=== PATIENT | female | born 1955 | race Caucasian/White ===

== ENCOUNTER → 2017-02-06 | Outpatient (CLI) | payer BC ==
--- NOTE | 2017-02-15 13:58 | MM ---
Reason for exam: clinical finding. Last mammogram was performed 12 years and 2 months ago. History: Patient had first child after 31. Family history of breast cancer in mother and breast cancer in relative. Excisional biopsy of the left breast. Physical Findings: Nurse did not find any significant physical abnormalities on exam. MG 3D Diag Mammo W/Cad CHARAN Bilateral CC and MLO view(s) were taken. Prior study comparison: May 18, 2012, mammogram, performed at [facility]. December 31, 2010, mammogram, performed at [facility]. December 03, 2004, bilateral screening mammogram. December 14, 1999, left breast special view mammogram. The breast tissue is heterogeneously dense. This may lower the sensitivity of mammography. There is no discrete abnormality. These results were verbally communicated with the patient and result sheet given to the patient on 02/06/17. ASSESSMENT: Negative, BI-RAD 1 RECOMMENDATION: Routine screening mammogram of both breasts in 1 year.
== END | disposition home or self-care (01) ==
LOC: RADMAMWWP 07:41
PROVIDERS: ATTEND Family Medicine
DX: R92.8 Other abnormal and inconclusive findings on diagnostic imaging of breast (principal)
CPT/HCPCS: G0204; G0279

== ENCOUNTER → 2018-07-24 | Outpatient (CLI) | payer BC ==
[2018-07-24 07:19] LABS: HCT 44.4 % (34.0-46.0); HGB 14.1 gm/dL (11.4-16.0); MCH 29.4 pg (25.0-35.0); MCHC 31.7 g/dL (31.0-37.0); MCV 92.8 fL (80.0-100.0); Mean Platelet Volume 7.1; Platelet Count 238 k/uL (150-450); RBC 4.79 m/uL (3.80-5.40); RDW 12.9 % (11.5-15.5); WBC 4.7 k/uL (3.8-10.6)
[2018-07-24 07:40] LABS: Appearance,Urine Clear (Clear); Bilirubin,Urine Negative (Negative); Blood,Urine Negative (Negative); Color,Urine Light Yellow; Glucose,Urine (UA) Negative (Negative); Ketones,Urine Negative (Negative); Leukocyte Esterase,Urine Small (Negative); Nitrite,Urine Negative (Negative); PH, Urine 6.5 (5.0-8.0); Protein,Urine Negative (Negative); RBC,Urine <1 /hpf (0-5); Specific Gravity,Urine 1.008 (1.001-1.035); Squamous Epithelial Cell,Urine <1 /hpf (0-4); Urobilinogen,Urine <2.0 mg/dL (<2.0); WBC,Urine 2 /hpf (0-5)
[2018-07-24 15:59] LABS: Albumin 4.5 g/dL (3.80-4.90); Albumin/Globulin Ratio 2.14 (1.20-2.10); Anion Gap 9.8 mmol/L (4.00-12.00); Calcium 9.6 mg/dL (8.7-10.3); Carbon Dioxide 27.2 mmol/L (21.6-31.8); Globulin 2.1 g/dL (2.1-3.7); LDL Cholesterol,Calculated 140.2 mg/dL (0.0-131.0); Potassium 4.5 mmol/L (3.5-5.5); Total Bilirubin 0.4 mg/dL (0.3-1.2); Total Protein 6.6 g/dL (6.2-8.2); VLDL Calculation 15.8 mg/dL (5.00-40.00)
[2018-07-24 16:06] LABS: T4, Free (Free Thyroxine) 1.3 ng/dL (0.80-1.80)
[2018-07-24 16:37] LABS: Hemoglobin A1C 5.7 % (4.0-6.0)
== END | disposition home or self-care (01) ==
LOC: LABWHC1 06:48
PROVIDERS: ATTEND Nurse Practitioner Acute Care
DX: Z00.00 Encounter for general adult medical examination without abnormal findings (principal); E03.9 Hypothyroidism, unspecified
CPT/HCPCS: 36415; 80053; 80061; 81001; 82306; 83036; 84439; 84443; 85027

== ENCOUNTER → 2018-08-17 | Outpatient (CLI) | payer BC ==
--- NOTE | 2018-08-17 16:09 | MR ---
EXAMINATION TYPE: MR iac wo/w con DATE OF EXAM: 08/17/2018 COMPARISON: None HISTORY: Right hearing loss, tinnitus CONTRAST: Performed utilizing 9.5 mL intravenous Gadavist gadolinium contrast. TECHNIQUE: Multiplanar, multiecho imaging on a 3.0 Renetta magnet is performed through the brain. Atte ntion is paid to the internal auditory canals with thin section imaging. Postcontrast imaging is per formed through the internal auditory canals. FINDINGS:Craniovertebral junction is normal. The pituitary is normal. Diffusion-weighted imaging is performed. No suspicious hyperintensity is present to suggest an acute intracranial infarct or acute ischemic area. Signal within the brain appears normal. Thin section imaging is performed through the internal auditory canals and cerebellar pontine angles. No cerebellar pontine angle masses are evident. The internal auditory canals appear normal without expansion or erosion. Postcontrast imaging was performed. No suspicious enhancement is evident within the internal audito ry canals or the included portions of the brain. Some mild mucosal thickening is within the inferior maxillary sinuses bilaterally. IMPRESSIONS: 1. Normal internal auditory canals. 2. No acute suspicious changes within the brain.
== END | disposition home or self-care (01) ==
LOC: RADMRIMAIN 11:18
PROVIDERS: ATTEND Otolaryngology
DX: H93.11 Tinnitus, right ear (principal); H91.91 Unspecified hearing loss, right ear
CPT/HCPCS: 70553; A9585

== ENCOUNTER 2018-10-22 08:11 | Observation (INO) | payer BC ==
[2018-10-22 08:57] LABS: Basophils % (A) 1 %; Eosinophils # (A) 0.2 k/uL (0-0.7); Eosinophils % (A) 5 %; HCT 44.1 % (34.0-46.0); HGB 14.6 gm/dL (11.4-16.0); Lymphocytes # (A) 1.2 k/uL (1.0-4.8); Lymphocytes % (A) 25 %; MCH 30.2 pg (25.0-35.0); MCHC 33.2 g/dL (31.0-37.0); Mean Platelet Volume 6.7; Monocytes # (A) 0.4 k/uL (0-1.0); Monocytes % (A) 8 %; Neutrophils # (A) 2.8 k/uL (1.3-7.7); Neutrophils % (A) 60 %; Platelet Count 231 k/uL (150-450); RBC 4.84 m/uL (3.80-5.40); RDW 12.7 % (11.5-15.5); WBC 4.6 k/uL (3.8-10.6)
[2018-10-22 09:09] LABS: D-Dimer 0.32 mg/L FEU (<0.60); INR 0.9 (<1.2); Partial Thromboplastin Time 24.4 sec (22.0-30.0); Prothrombin Time 9.5 sec (9.0-12.0)
[2018-10-22 09:10] LABS: ALT 33 U/L (9-52); AST 24 U/L (14-36); Albumin 4.3 g/dL (3.5-5.0); Alkaline Phosphatase 79 U/L (38-126); Anion Gap 6 mmol/L; Blood Urea Nitrogen 16 mg/dL (7-17); Calcium 9.6 mg/dL (8.4-10.2); Carbon Dioxide 30 mmol/L (22-30); Chloride 107 mmol/L (98-107); Glucose 101 mg/dL (74-99); Magnesium 2.2 mg/dL (1.6-2.3); Potassium 4.3 mmol/L (3.5-5.1); Sodium 143 mmol/L (137-145); Total Bilirubin 0.6 mg/dL (0.2-1.3); Total Protein 7.2 g/dL (6.3-8.2)
--- NOTE | 2018-10-22 09:19 | XR ---
EXAMINATION TYPE: XR chest 2V DATE OF EXAM: 10/22/2018 COMPARISON: None INDICATION: Chest heaviness TECHNIQUE: Frontal and lateral views of the chest are obtained. FINDINGS: The heart size is normal. The pulmonary vasculature is normal. The lungs are clear. IMPRESSION: 1. No acute pulmonary process.
--- NOTE | 2018-10-22 09:26 | ED ---
Chest Pain HPI - General Chief Complaint: Chest Pain Stated Complaint: Chest Pain Time Seen by Provider: 10/22/18 08:26 Source: patient Mode of arrival: ambulatory Limitations: no limitations - Related Data Home Medications Medication Instructions Recorded Confirmed Amoxic-Pot Clav 875-125Mg 1 tab PO Q12HR 10/22/18 10/22/18 [Augmentin 875-125] Cetirizine HCl [Zyrtec] 10 mg PO HS 10/22/18 10/22/18 Levothyroxine Sodium [Synthroid] 88 mcg PO DAILY 10/22/18 10/22/18 Allergies Allergy/AdvReac Type Severity Reaction Status Date / Time No Known Allergies Allergy Verified 10/22/18 08:34 Review of Systems ROS Statement: Those systems with pertinent positive or pertinent negative responses have been documented in the HPI. ROS Other: All systems not noted in ROS Statement are negative. EKG Findings - EKG Comments: EKG Findings:: EKG shows sinus rhythm rate of 77, RI 154, QRS 02, QTc 4:30 Past Medical History Past Medical History: Thyroid Disorder History of Any Multi-Drug Resistant Organisms: None Reported Past Surgical History: Cholecystectomy, Tonsillectomy Past Psychological History: No Psychological Hx Reported Smoking Status: Former smoker Past Alcohol Use History: Occasional Past Drug Use History: None Reported General Exam Limitations: no limitations Course Vital Signs 10/22/18 08:19 Temperature 97.8 F Pulse Rate 71 Respiratory 18 Rate Blood Pressure 142/86 O2 Sat by Pulse 99 Oximetry Disposition Clinical Impression: Chest pain Disposition: ADMITTED IP TO THIS [facility] Condition: Undetermined Instructions (If sedation given, give patient instructions): Chest Pain (ED) Is patient prescribed a controlled substance at d/c from ED?: No Referrals: John Salinas DO [Primary Care Provider] - 1-2 days
[2018-10-22 09:35] LABS: Creatine Kinase 75 U/L (30-135)
[2018-10-22 09:47] LABS: Creatine Kinase MB 0.7 ng/mL (0.0-2.4); Troponin I <0.012 ng/mL (0.000-0.034)
[2018-10-22] MEDS ORDERED: NITROGLYCERIN SL TABS 0.4 MG TAB SUBLINGUAL PRN (10:50)
[2018-10-22] MEDS ORDERED: HEPARIN SODIUM,PORCINE 5,000 UNIT/ML 1 ML VIAL IV PRN (10:50)
[2018-10-22] MEDS ORDERED: HEPARIN SODIUM,PORCINE 5,000 UNIT/ML 1 ML VIAL IV ONE (10:50)
[2018-10-22] MEDS: HEPARIN SOD,PORK IN 0.45% NACL 25,000 UNIT in 0.45% NACL 1 250ML.BAG IV SCH (11:12)
[2018-10-22] MEDS ORDERED: MAG HYDROX/AL HYDROX/SIMETH 30 ML CUP PO ONE (15:10)
--- NOTE | 2018-10-22 15:10 | P.CRDCN ---
History of Present Illness History of present illness: This is a pleasant 63-year-old female past medical history significant for hypothyroidism, dyslipidemia and osteoarthritis. She denies history of coronary artery disease or hypertension. Her brother suffered a heart attack in his mid-40s and survived. We have been asked to see her in consultation for chest pain. She states she woke up Monday morning with an heavy pressure sensation in the mid-sternal and left precordial region with radiation through to her back. She states this discomfort was noted to be there when she woke and remained persistent ever since. The heaviness seems to be worse in the morning. Last night she noted some palpitations and fluttering in her chest, she checked her pulse and it was normal. She states she has felt similar type palpitations in the past when her thyroid has been abnormal. She also felt mildly short of breath last night with no specific aggravating factors. Upon arrival to ED at the time of her EKG she describes pain 8/10 in her chest. The pain has slowly improved since admission with a mild ache still present 2/10. She associated the improvement in symptoms when they gave her IV heparin. EKG reveals sinus mechanism with no acute ST or T-wave abnormalities noted. Chest x-ray is negative for an acute cardiopulmonary process. Laboratory data reviewed, WBC 4.6, hemoglobin 14.6, platelets 231, d-dimer 0.32 , sodium 143, potassium 4.3, creatinine 0.81, magnesium 2.2, cardiac enzymes negative 1, and NTproBNP 174. She takes no daily cardiac medications. However, she does take Red Yeast Rice for her cholesterol over the counter. At the time of my exam: CONSTITUTIONAL: Denies fever. Denies chills. EYES: Denies blurred vision. Denies vision changes. Denies eye pain. EARS, NOSE, MOUTH & THROAT: Denies headache. Denies sore throat. Denies ear pain. CARDIOVASCULAR: Complains of chest pain. Denies shortness of breath. Denies orthopnea. Denies PND. Denies palpitations. RESPIRATORY: Denies cough. GASTROINTESTINAL: Denies abdominal pain. Denies diarrhea. Denies constipation. Denies nausea. Denies vomiting. MUSCULOSKELETAL: Denies myalgias. INTEGUMENTARY: Denies pruitis. Denies rash. NEUROLOGIC: Denies numbness. Denies tingling. Denies weakness. PSYCHIATRIC: Denies anxiety. Denies depression. ENDOCRINE: Denies fatigue. Denies weight change. Denies polydipsia. Denies polyurina. GENITOURINARY: Denies burning, hematuria or urgency with micturation. HEMATOLOGIC: Denies history of anemia. Denies bleeding. Blood pressure 148/80 heart rate 75 afebrile maintaining oxygen saturation on room air GENERAL: This is a 63-year-old female in no apparent distress at the time of my examination. HEENT: Head is atraumatic, normocephalic. Pupils are equal, round. Sclerae anicteric. Conjunctivae are clear. Mucous membranes of the mouth are moist. Neck is supple. There is no jugular venous distention. No carotid bruit is heard. LUNGS: Clear to auscultation no wheezes, rales or rhonchi. No chest wall tenderness is noted on palpation or with deep breathing. HEART: Regular rate and rhythm with faint systolic ejection murmur at the base, no rubs or gallops. S1 and S2 heard. ABDOMEN: Soft, nontender. Bowel sounds are heard. No organomegaly noted. EXTREMITIES: No evidence of peripheral edema and no calf tenderness noted. VASCULAR: Radial and dorsalis pedis pulses palpated, no evidence of clubbing. NEUROLOGIC: Patient is awake, alert and oriented x3. ASSESSMENT Precordial chest pain constant 2 days not associated with exertion. Dyslipidemia Hypothyroidism Significant family history for premature coronary artery disease Obestiy, BMI 32.3 PLAN Continue to obtain serial cardiac enzymes to rule out an acute event. Obtain 2-D echocardiogram and Doppler study to assess cardiac structure and function. Check TSH and lipid panel. Give maalox 30 ml x1 now and document if she achieves relief of ongoing chest pain. Nothing by mouth after midnight tonight for possibility of stress testing versus coronary angiography in the morning. Further recommendations to follow based upon clinical course. Thank you kindly for this consultation. Nurse Practitioner note has been reviewed, I agree with a documented findings and plan of care. Patient was seen and examined. Past Medical History Past Medical History: Hearing Disorder / Deafness, Osteoarthritis (OA), Thyroid Disorder Additional Past Medical History / Comment(s): Blood clotting disorder in family but pt tested negative for it, arthritis in multiple joints, LDL 130s-not on RX yet, R ear tinnitis, hypothyroid. History of Any Multi-Drug Resistant Organisms: None Reported Past Surgical History: Adenoidectomy, Cholecystectomy, Tonsillectomy, Tubal Ligation Additional Past Surgical History / Comment(s): Cervical benign polypectomy, L breast lumpectomy x2 (benign), D&C Additional Past Anesthesia/Blood Transfusion Reaction / Comment(s): Pt is slow to wake. Smoking Status: Former smoker - Past Family History Father Additional Family Medical History / Comment(s): Father at the age of 44 yrs after a trip to [facility]-possible intestinal infection. Mother Family Medical History: Cancer Additional Family Medical History / Comment(s): Mother had breasst cancer. She is 81 yrs old. Medications and Allergies Home Medications Medication Instructions Recorded Confirmed Type Amoxic-Pot Clav 875-125Mg 1 tab PO Q12HR 10/22/18 10/22/18 History [Augmentin 875-125] Cetirizine HCl [Zyrtec] 10 mg PO HS 10/22/18 10/22/18 History Levothyroxine Sodium [Synthroid] 88 mcg PO DAILY 10/22/18 10/22/18 History Allergies Allergy/AdvReac Type Severity Reaction Status Date / Time No Known Allergies Allergy Verified 10/22/18 08:34 Physical Exam Vitals: Vital Signs Temp Pulse Pulse Resp BP BP Pulse Ox 10/22/18 12:15 98.2 F 75 18 148/80 98 10/22/18 10:50 72 18 143/70 100 10/22/18 08:19 97.8 F 71 18 142/86 99 Intake and Output 10/21/18 10/22/18 10/22/18 22:59 06:59 14:59 Intake Total 436 Balance 436 Intake: Oral 436 Other: # Voids 1 Weight 90.718 kg Results 10/22/18 08:45 10/22/18 08:45 Cardiac Enzymes 10/22/18 10/22/18 Range/Units 08:45 08:45 AST 24 (14-36) U/L CK-MB (CK-2) 0.7 (0.0-2.4) ng/mL Troponin I <0.012 (0.000-0.034) ng/mL Coagulation 10/22/18 Range/Units 08:45 PT 9.5 (9.0-12.0) sec APTT 24.4 (22.0-30.0) sec CBC 10/22/18 Range/Units 08:45 WBC 4.6 (3.8-10.6) k/uL RBC 4.84 (3.80-5.40) m/uL Hgb 14.6 (11.4-16.0) gm/dL Hct 44.1 (34.0-46.0) % Plt Count 231 (150-450) k/uL Comprehensive Metabolic Panel 10/22/18 Range/Units 08:45 Sodium 143 (137-145) mmol/L Potassium 4.3 (3.5-5.1) mmol/L Chloride 107 (98-107) mmol/L Carbon Dioxide 30 (22-30) mmol/L BUN 16 (7-17) mg/dL Creatinine 0.81 (0.52-1.04) mg/dL Glucose 101 H (74-99) mg/dL Calcium 9.6 (8.4-10.2) mg/dL AST 24 (14-36) U/L ALT 33 (9-52) U/L Alkaline Phosphatase 79 (38-126) U/L Total Protein 7.2 (6.3-8.2) g/dL Albumin 4.3 (3.5-5.0) g/dL Current Medications Generic Name Dose Route Start Last Admin Trade Name Philipq PRN Reason Stop Dose Admin Aspirin 325 mg 10/23/18 09:00 Aspirin PO DAILY DARYL Heparin Sodium (Porcine) 0 unit 10/22/18 10:50 Heparin IV Q6HR PRN Low PTT Protocol Heparin Sodium/Sodium Chloride 250 mls @ 10 mls/hr 10/22/18 11:00 10/22/18 11 :12 25,000 unit/ Sodium Chloride IV 11.024 units/kg/hr .Q24H DARYL 10 mls/hr Administration Protocol 11.024 UNITS/KG/HR Nitroglycerin 0.4 mg 10/22/18 10:50 Nitrostat SUBLINGUAL Q5M PRN Chest Pain Intake and Output 10/21/18 10/22/18 10/22/18 22:59 06:59 14:59 Intake Total 436 Balance 436 Intake: Oral 436 Other: # Voids 1 Weight 90.718 kg Patient Weight 10/23/18 06:59 Weight 90.718 kg 10/22/18 08:45 10/22/18 08:45
[2018-10-22 15:50] LABS: Creatine Kinase 71 U/L (30-135)
[2018-10-22 16:03] LABS: Creatine Kinase MB 0.5 ng/mL (0.0-2.4); Troponin I <0.012 ng/mL (0.000-0.034)
--- NOTE | 2018-10-22 18:32 | ECHOF ---
Referral Reason:cp MEASUREMENTS -------- HEIGHT: 167.6 cm WEIGHT: 90.7 kg BP: 148/80 RVIDd: 2.8 cm (< 3.3) IVSd: 1.1 cm (0.6 - 1.1) LVIDd: 4.0 cm (3.9 - 5.3) LVPWd: 1.0 cm (0.6 - 1.1) IVSs: 1.3 cm LVIDs: 2.6 cm LVPWs: 1.3 cm LAESV Index (A-L): 14.38 ml/m Ao Diam: 3.3 cm (2.0 - 3.7) AV Cusp: 2.1 cm (1.5 - 2.6) LA Diam: 3.2 cm (2.7 - 3.8) EPSS: 0.3 cm MV E Slade: 0.76 m/s MV DecT: 256 ms MV A Slade: 0.71 m/s MV E/A Ratio: 1.07 RAP: 5.00 mmHg RVSP: 26.02 mmHg MV EF SLOPE: 95.17 mm/s (70 - 150) MV EXCURSION: 1.96 cm (> 18.000) FINDINGS -------- Sinus rhythm. This was a technically adequate study. The left ventricular size is normal. Left ventricular wall thickness is normal. Overall left vent ricular systolic function is normal with, an EF between 55 - 60 %. The right ventricle is normal in size and function. Normal LA size by volume 22+/-6 ml/m2. The right atrium is normal in size. The aortic valve is trileaflet, and appears structurally normal. No aortic stenosis or regurgitation. The mitral valve leaflets are mildly thickened. There is trace to mild mitral regurgitation. Trace tricuspid regurgitation present. Right ventricular systolic pressure is normal at < 35 mmHg. There is no evidence of pulmonary hypertension. Trace/mild (physiologic) pulmonic regurgitation. The aortic root size is normal. Normal inferior vena cava with normal inspiratory collapse consistent with estimated right atrial pre ssure of 5 mmHg. There is no pericardial effusion. CONCLUSIONS -------- 1. Sinus rhythm. 2. This was a technically adequate study. 3. The left ventricular size is normal. 4. Left ventricular wall thickness is normal. 5. Overall left ventricular systolic function is normal with, an EF between 55 - 60 %. 6. Normal LA size by volume 22+/-6 ml/m2. 7. The aortic valve is trileaflet, and appears structurally normal. No aortic stenosis or regurgitati on. 8. The mitral valve leaflets are mildly thickened. 9. There is trace to mild mitral regurgitation. 10. Trace tricuspid regurgitation present. 11. Right ventricular systolic pressure is normal at < 35 mmHg. 12. There is no evidence of pulmonary hypertension. 13. Trace/mild (physiologic) pulmonic regurgitation. 14. The aortic root size is normal. 15. There is no pericardial effusion. SOFTWARE DEVELOPER MID LEVEL: Gucci Aquino RDCS
[2018-10-22 18:36] LABS: T4, Free (Free Thyroxine) 1.6 ng/dL (0.78-2.19)
[2018-10-22] MEDS: NITROGLYCERIN-D5W PMX 50 MG in DEXTROSE/WATER 1 250ML.BAG IV SCH (20:45)
[2018-10-22] MEDS ORDERED: METOPROLOL TARTRATE 25 MG TAB PO SCH (21:00)
[2018-10-22 21:16] LABS: Creatine Kinase 68 U/L (30-135)
[2018-10-22 21:27] LABS: Creatine Kinase MB 0.4 ng/mL (0.0-2.4); Troponin I <0.012 ng/mL (0.000-0.034)
--- NOTE | 2018-10-22 22:22 | P.HPIM ---
History of Present Illness H&P Date: 10/22/18 Chief Complaint: Chest pain Patient is 63-year-old female with a known history of hypothyroidism, osteoarthritis and hearing disorder came to ER with complaints of chest pressure since Monday a.m. Patient says that she woke up with heavy pressure- like sensation in the midsternal region and radiating to the back. 8 / 10 in severity when she came to the hospital. Patient has been having constant pain and pressure since then. Patient also has been burping a lot. Patient did take Prilosec at home without much relief. Patient has been feeling fluttering in her chest intermittently. Patient says that she does have history of hypothyroidism and has been taking higher dose of levothyroxine and recently reduce the dose to 88 g from 100 g due to fluttering in the chest. Otherwise patient denied any associated shortness of breath, nausea vomiting or diaphoresis. No headache or dizziness or lightheadedness. No cough or sputum production. No fever no chills. EKG showed normal sinus rhythm with no acute ST-T wave changes Chest x-ray showed no acute cardiopulmonary process D-dimer 0.3 to not elevated Troponin 1 negative nt-proBNP is 174 Patient says that she has a family history of blood clots and she was tested previously but workup came out negative for her. Patient does have a family history of coronary disease in her brother with history of [facility] at age 49. He also had bariatric surgery. TSH 0.2 and free T4 1.6 Review of Systems Constitutional: Patient denies any fever or chills . No generalized weakness or weight loss. Abdomen: Patient denied nausea vomiting and diarrhea and abdominal pain. Cardiovascular: Waldron does have chest pressure. No short of breath no palpitations. Respiratory: patient denied any cough is from production. No shortness of breath Neurologic: Patient denied any numbness or tingling headache. Musculoskeletal: Patient denies any complaints of joint swelling or deformity. Skin: Negative Psychiatric: Negative Endocrine: No heat or cold intolerance. No recent weight gain. Genitourinary: No dysuria or hematuria. All other 14 point ROS negative except the above Past Medical History Past Medical History: Hearing Disorder / Deafness, Osteoarthritis (OA), Thyroid Disorder Additional Past Medical History / Comment(s): Blood clotting disorder in family but pt tested negative for it, arthritis in multiple joints, LDL 130s-not on RX yet, R ear tinnitis, hypothyroid. History of Any Multi-Drug Resistant Organisms: None Reported Past Surgical History: Adenoidectomy, Cholecystectomy, Tonsillectomy, Tubal Ligation Additional Past Surgical History / Comment(s): Cervical benign polypectomy, L breast lumpectomy x2 (benign), D&C Additional Past Anesthesia/Blood Transfusion Reaction / Comment(s): Pt is slow to wake. Smoking Status: Former smoker - Past Family History Father Additional Family Medical History / Comment(s): Father at the age of 44 yrs after a trip to [facility]-possible intestinal infection. Mother Family Medical History: Cancer Additional Family Medical History / Comment(s): Mother had breasst cancer. She is 81 yrs old. Medications and Allergies Home Medications Medication Instructions Recorded Confirmed Type Amoxic-Pot Clav 875-125Mg 1 tab PO Q12HR 10/22/18 10/22/18 History [Augmentin 875-125] Cetirizine HCl [Zyrtec] 10 mg PO HS 10/22/18 10/22/18 History Levothyroxine Sodium [Synthroid] 88 mcg PO DAILY 10/22/18 10/22/18 History Allergies Allergy/AdvReac Type Severity Reaction Status Date / Time No Known Allergies Allergy Verified 10/22/18 08:34 Physical Exam Vitals: Vital Signs Temp Pulse Pulse Resp BP BP Pulse Ox 10/22/18 12:15 98.2 F 75 18 148/80 98 10/22/18 10:50 72 18 143/70 100 10/22/18 08:19 97.8 F 71 18 142/86 99 Intake and Output 10/22/18 10/22/18 10/22/18 06:59 14:59 22:59 Intake Total 436 Balance 436 Intake: Oral 436 Other: # Voids 1 Weight 90.718 kg PHYSICAL EXAMINATION: Patient is lying in the bed comfortably, no acute distress, awake alert and oriented.. HEENT: Normocephalic. Neck is supple. Pupils reactive. Nostrils clear. Oral cavity is moist. Ears reveal no drainage. Neck reveals no JVD, carotid bruits, or thyromegaly. CHEST EXAMINATION: Trachea is central. Symmetrical expansion. Lung dela cruz clear to auscultation and percussion. CARDIAC: Normal S1, S2 with no gallops. No murmurs ABDOMEN: Soft. Bowel sounds normal. No organomegaly. No abdominal bruits. Extremities: reveal no edema. No clubbing or cyanosis Neurologically awake, alert, oriented x3 with well-coordinated movements. No focal deficits noted Skin: No rash or skin lesions. Psychiatric: Coperative. Nonsuicidal Musculoskeletal: No joint swelling or deformity. Normal range of motion. Results CBC & Chem 7: 10/22/18 08:45 10/22/18 08:45 Labs: Abnormal Lab Results - Last 24 Hours (Table) 10/22/18 Range/Units 08:45 Glucose 101 H (74-99) mg/dL Thrombosis Risk Factor Assmnt - DVT/VTE Prophylaxis DVT/VTE Prophylaxis: Pharmacologic Prophylaxis ordered - Choose All That Apply Any of the Below Risk Factors Present?: Yes Each Factor Represents 1 point: Obesity (BMI >25) Other Risk Factors: Yes Each Risk Factor Represents 2 Points: Age 61-74 years Other congenital or acquired thrombophilia - If yes, enter type in comment: No Thrombosis Risk Factor Assessment Total Risk Factor Score: 3 Thrombosis Risk Factor Assessment Level: Moderate Risk Assessment and Plan Assessment: Atypical chest pain. Rule out ACS Hypothyroidism Hyperlipidemia Family history of coronary artery disease with VA in her brother at age 49 Obesity with BMI 32.3 Osteoarthritis Hearing disorder/deafness Family history of blood clotting disorders Previous history of smoking DVT prophylaxis Plan: Patient will be continued on telemetry monitoring. Serial EKG and troponin negative 3. Patient was started on heparin drip. Cardiology was consulted for further evaluation. Lipid panel was ordered. Possible stress test tomorrow. Current with home medications and further recommendations based on the clinical course. Time with Patient: Greater than 30
[2018-10-23] MEDS ORDERED: ACETAMINOPHEN TAB 325 MG TAB PO PRN (03:38)
[2018-10-23] MEDS: LEVOTHYROXINE 88 MCG TAB PO SCH (06:42)
[2018-10-23 07:31] LABS: Mean Platelet Volume 6.8; Platelet Count 220 k/uL (150-450)
[2018-10-23 07:54] LABS: Cholesterol 199 mg/dL (<200); HDL Cholesterol 50 mg/dL (40-60); LDL Cholesterol,Calculated 127 mg/dL (0-99); Triglycerides 112 mg/dL (<150)
[2018-10-23] MEDS ORDERED: SODIUM CHLORIDE 0.9% 1,000 ML in EMPTY BAG 1 BAG IV ONE (08:18)
[2018-10-23] MEDS ORDERED: ALPRAZolam 0.5 MG TAB PO PRN (08:18)
[2018-10-23] MEDS ORDERED: ALPRAZolam 0.25 MG TAB PO PRN (08:18)
[2018-10-23] MEDS ORDERED: ASPIRIN 325 MG TAB PO STA (08:18)
[2018-10-23] MEDS ORDERED: ATORVASTATIN 80 MG TAB PO STA (08:18)
[2018-10-23] MEDS ORDERED: NITROGLYCERIN SL TABS 0.4 MG TAB SUBLINGUAL PRN (08:18)
[2018-10-23] MEDS: ASPIRIN 325 MG TAB PO SCH (09:11)
[2018-10-23] MEDS: HEPARIN SOD,PORK IN 0.45% NACL 25,000 UNIT in 0.45% NACL 1 250ML.BAG IV SCH (12:45)
[2018-10-23] MEDS ORDERED: VERAPAMIL 2.5 MG/ML 2 ML AMP ONE (13:49)
[2018-10-23] MEDS ORDERED: MIDAZOLAM 2 MG/2 ML VIAL IV ONE ×2 (13:53→14:01)
[2018-10-23] MEDS ORDERED: LIDOCAINE 2% INJ 20 MG/ML SQ ONE (13:54)
[2018-10-23] MEDS ORDERED: IV FLUID CONTINUATION 1,000 ML IV ONE (13:54)
[2018-10-23] MEDS ORDERED: METOPROLOL TARTRATE 5 MG/5 ML VIAL IVP ONE ×2 (13:55→13:57)
[2018-10-23] MEDS ORDERED: HEPARIN SODIUM 1,000 UN/ML (10ML VL) IV ONE (13:55)
[2018-10-23] MEDS ORDERED: VERAPAMIL 2.5 MG/ML 4 ML VIAL INTRAARTER ONE (13:58)
[2018-10-23] MEDS ORDERED: IOPAMIDOL-370 150ML BTL INJ ONE (14:06)
--- NOTE | 2018-10-23 14:10 | P.PN ---
Subjective Progress Note Date: 10/23/18 This is a pleasant 63-year-old female with history of hyperlipidemia, hypothyroidism, family history of premature coronary artery disease, who was seen in consultation yesterday, she presented to the hospital with symptoms of chest heaviness which woke her from sleep. She did have some mild associated shortness of breath with this. She states that the discomfort started through the night, and lasted into the next day. Patient was given nitroglycerin here at the hospital and it seemed to relieve the symptoms of chest discomfort. Last night she did have another episode of chest discomfort, she was started on IV nitroglycerin drip and transferred to the sixth floor. Her EKG performed on admission showed a normal sinus rhythm with nonspecific ST-T wave changes. Troponins were negative 3. Patient was advised to undergo cardiac catheterization, the risks and benefits were explained to the patient in detail , and this will be performed today by Dr. Cole. Objective - Vital Signs Vital signs: Vital Signs Temp 98.1 F 10/23/18 12:20 Pulse 74 10/23/18 12:20 Resp 17 10/23/18 12:20 BP 127/68 10/23/18 12:20 Pulse Ox 100 10/23/18 12:20 Intake & Output 10/22/18 10/23/18 10/23/18 18:59 06:59 18:59 Intake Total 676 370.3 0 Balance 676 370.3 0 Weight 90.718 kg 95.6 kg Intake: Intake, IV Titration 130.3 0 Amount Heparin Sod,Pork in 0.45% 120 NaCl 25,000 unit In 0.45 % NaCl 1 250ml.bag @ 11. 024 UNITS/KG/HR 10 mls/hr IV .Q24H DARYL Rx#: [id number] Nitroglycerin-D5w Pmx 50 10.3 0 mg In Dextrose/Water 1 250ml.bag @ 5 MCG/MIN 1.5 mls/hr IV .Q24H DARYL Rx#: [id number] Oral 676 240 Other: Voiding Method Toilet Toilet # Voids 1 3 2 - Exam PHYSICAL EXAMINATION: GENERAL: 63-year-old female in no acute distress at the time of my examination HEENT: Head is atraumatic, normocephalic. Pupils equal, round. Sclera anicteric. Conjunctiva are clear. Mucous membranes of the mouth are moist. Neck is supple. There is no elevated jugular venous pressure.] bruit is heard. HEART EXAMINATION: Heart S1, S2 normal. No murmur or gallop heard. CHEST EXAMINATION: Lungs are clear to auscultation and precussion. No chest wall tenderness is noted on palpation or with deep breathing. ABDOMEN: Soft, nontender. Bowel sounds are heard. No organomegaly noted. EXTREMITIES: 2+ peripheral pulses with no evidence of peripheral edema and no calf tenderness noted. NEUROLOGIC patient is awake, alert and oriented ?-3. . - Labs CBC & Chem 7: 10/23/18 05:52 10/22/18 08:45 Labs: Abnormal Lab Results - Last 24 Hours (Table) 10/22/18 10/22/18 10/23/18 Range/Units 15:02 16:47 05:52 APTT 53.4 H (22.0-30.0) sec LDL Cholesterol, Calc 127 H (0-99) mg/dL TSH 0.217 L (0.465-4.680) mIU/L 10/23/18 Range/Units 05:52 APTT 51.9 H (22.0-30.0) sec LDL Cholesterol, Calc (0-99) mg/dL TSH (0.465-4.680) mIU/L Assessment and Plan Plan: Assessment and plan #1 symptoms of chest pressure and heaviness with mild associated shortness of breath, bone is normal 3, no acute EKG changes. #2 hyperlipidemia #3 hypothyroidism #4 family history of premature coronary artery disease Plan Echocardiogram with Doppler study was performed which revealed a normal left ventricular systolic function. Patient has been advised to undergo cardiac catheterization. The risks and the benefits were explained to the patient in detail and she is willing to proceed. This will be performed today by Dr. Cole. Further recommendations based on these findings and the patient's clinical course. DNP note has been reviewed, I agree with a documented findings and plan of care. Patient was seen and examined.
[2018-10-23] MEDS ORDERED: RX INFO: IV CONTRAST WAS GIVEN 1 EACH MISC MISCELLANE PRN (14:12)
[2018-10-23] MEDS ORDERED: SODIUM CHLORIDE 0.9% 1,000 ML IV SCH (14:15)
[2018-10-23 15:50] VITALS: RESP 16
[2018-10-23] MEDS: NITROGLYCERIN-D5W PMX 50 MG in DEXTROSE/WATER 1 250ML.BAG IV SCH (15:51)
[2018-10-23] MEDS ORDERED: LORATADINE 10 MG TAB PO SCH (21:00)
--- NOTE | 2018-10-23 21:45 | CC ---
CARDIAC CATHETERIZATION REPORT DATE OF SERVICE: 10/23/2018 PERFORMING PHYSICIAN: Nimesh Kelly MD, batch trucker. PROCEDURE PERFORMED: Selective right and left coronary angiogram. INDICATION: This is a pleasant 63-year-old female patient with hypertension and dyslipidemia who presented to the hospital with chest discomfort and continues to have chest discomfort in spite of IV nitroglycerin. Because of that and because of the family history of coronary artery disease, I decided to pursue a heart catheterization. APPROACH: Right radial artery. COMPLICATIONS: None. LEVEL OF SEDATION: Moderate, with sedation length of 17 minutes. PROCEDURE DESCRIPTION: After obtaining informed consent, the patient was brought to the cardiac laboratory animal facility supervisor. The right radial artery was cannulated using micropuncture technique. The micropuncture wire passed easily. Then I placed a 6-Persian sheath in the right radial artery. After that, I gave the patient 2 mg of verapamil IA and 10,000 units of heparin IV. Subsequently I did selective right and left coronary angiogram using JR4 and JL3.5 catheters. The procedure was completed without any complication. SELECTIVE CORONARY ANGIOGRAM: 1. The right coronary artery is a large-caliber vessel and it is a dominant vessel. It is angiographically normal. It distally bifurcates into PDA and PLV branches; both are angiographically normal. 2. The left main is angiographically normal. It bifurcates into the left circumflex and left anterior descending artery. 3. The left circumflex is a large-caliber vessel. It is a nondominant vessel. It is angiographically normal. 4. The LAD. The proximal LAD appeared to be angiographically normal. It gives rise to a large diagonal branch which appeared to be normal. The mid LAD and distal LAD appeared to be normal. CONCLUSION: Normal coronary angiogram. POST-PROCEDURE MANAGEMENT: 1. Medical treatment. 2. Follow up with the patient. MMODL / IJN: [id number] /
--- NOTE | 2018-10-23 22:01 | LTR ---
DATE OF SERVICE: October 23, [address] Salinas: Ms. Salud Null was admitted to [facility] with chest discomfort and she continues to have ongoing chest discomfort in spite of maximized medical treatment. I did perform a heart catheterization on her and that revealed normal coronaries. I want to thank you for allowing us to participate in his care. Please do not hesitate to call with any questions or concerns. MMODL / IJN: [id number] /
--- NOTE | 2018-10-23 23:52 | P.PN ---
Subjective Progress Note Date: 10/23/18 Principal diagnosis: Chest pain/pressure Patient is 63-year-old female with a known history of hypothyroidism, osteoarthritis and hearing disorder came to ER with complaints of chest pressure since Monday a.m. Patient says that she woke up with heavy pressure- like sensation in the midsternal region and radiating to the back. 8 / 10 in severity when she came to the hospital. Patient has been having constant pain and pressure since then. Patient also has been burping a lot. Patient did take Prilosec at home without much relief. Patient has been feeling fluttering in her chest intermittently. Patient says that she does have history of hypothyroidism and has been taking higher dose of levothyroxine and recently reduce the dose to 88 g from 100 g due to fluttering in the chest. Otherwise patient denied any associated shortness of breath, nausea vomiting or diaphoresis. No headache or dizziness or lightheadedness. No cough or sputum production. No fever no chills. Patient did take Augmentin for one day prior to admission. Was started for possible pneumonia as an outpatient. EKG showed normal sinus rhythm with no acute ST-T wave changes Chest x-ray showed no acute cardiopulmonary process D-dimer 0.3 to not elevated Troponin 1 negative nt-proBNP is 174 Patient says that she has a family history of blood clots and she was tested previously but workup came out negative for her. Patient does have a family history of coronary disease in her brother with history of [place] at age 49. He also had bariatric surgery. TSH 0.2 and free T4 1.6 10/23/2018 Patient is status post cardiac catheterization. Patient was found have normal coronaries. Medical management was recommended as per cardiology. Otherwise currently denied any complaints of chest pain or shortness of breath. No nausea vomiting or abdominal pain. No diarrhea or dysuria. Current medications reviewed. Objective - Vital Signs Vital signs: Vital Signs Temp 98.1 F 10/23/18 12:20 Pulse 74 10/23/18 12:20 Resp 17 10/23/18 12:20 BP 127/68 10/23/18 12:20 Pulse Ox 100 10/23/18 12:20 Intake & Output 10/22/18 10/23/18 10/23/18 18:59 06:59 18:59 Intake Total 676 370.3 50 Balance 676 370.3 50 Weight 90.718 kg 95.6 kg Intake: IV 50 Intake, IV Titration 130.3 0 Amount Heparin Sod,Pork in 0.45% 120 NaCl 25,000 unit In 0.45 % NaCl 1 250ml.bag @ 11. 024 UNITS/KG/HR 10 mls/hr IV .Q24H DARYL Rx#: [id number] Nitroglycerin-D5w Pmx 50 10.3 0 mg In Dextrose/Water 1 250ml.bag @ 5 MCG/MIN 1.5 mls/hr IV .Q24H DARYL Rx#: [id number] Oral 676 240 Other: Voiding Method Toilet Toilet # Voids 1 3 2 - Exam PHYSICAL EXAMINATION: Patient is lying in the bed comfortably, no acute distress, awake alert and oriented.. HEENT: Normocephalic. Neck is supple. Pupils reactive. Nostrils clear. Oral cavity is moist. Ears reveal no drainage. Neck reveals no JVD, carotid bruits, or thyromegaly. CHEST EXAMINATION: Trachea is central. Symmetrical expansion. Lung dela cruz clear to auscultation and percussion. CARDIAC: Normal S1, S2 with no gallops. No murmurs ABDOMEN: Soft. Bowel sounds normal. No organomegaly. No abdominal bruits. Extremities: reveal no edema. No clubbing or cyanosis Neurologically awake, alert, oriented x3 with well-coordinated movements. No focal deficits noted Skin: No rash or skin lesions. Psychiatric: Coperative. Nonsuicidal Musculoskeletal: No joint swelling or deformity. Normal range of motion. - Labs CBC & Chem 7: 10/23/18 05:52 10/22/18 08:45 Labs: Abnormal Lab Results - Last 24 Hours (Table) 10/22/18 10/22/18 10/23/18 Range/Units 15:02 16:47 05:52 APTT 53.4 H (22.0-30.0) sec LDL Cholesterol, Calc 127 H (0-99) mg/dL TSH 0.217 L (0.465-4.680) mIU/L 10/23/18 Range/Units 05:52 APTT 51.9 H (22.0-30.0) sec LDL Cholesterol, Calc (0-99) mg/dL TSH (0.465-4.680) mIU/L Assessment and Plan Assessment: Atypical chest pain/pressure. Ruled out ACS. Status post cardiac catheterization and was found have normal coronaries. Hypothyroidism Hyperlipidemia Family history of coronary artery disease with [place] in her brother at age 49 Obesity with BMI 32.3 Osteoarthritis Hearing disorder/deafness Family history of blood clotting disorders Previous history of smoking DVT prophylaxis Plan: Patient will be continued on telemetry monitoring. Serial EKG and troponin negative 3. Patient was seen by cardiology and recommended cardiac catheterization. Patient is status post cardiac catheterization and normal coronaries. Medical management was recommended as per cardiology. Her chest pressure symptoms could be secondary to possible gastritis since the pain started after taking Augmentin for one day. Currently patient denied any complaints of chest pain or pressure. No nausea vomiting or abdominal pain. Patient be continued to monitor for 24 hours. Anticipate discharge tomorrow. Current with home medications and further recommendations based on the clinical course. Time with Patient: Greater than 30
[2018-10-24 06:27] LABS: Mean Platelet Volume 7.4; Platelet Count 199 k/uL (150-450)
[2018-10-24 09:05] VITALS: TEMP 97.6
[2018-10-24] MEDS: HEPARIN SOD,PORK IN 0.45% NACL 25,000 UNIT in 0.45% NACL 1 250ML.BAG IV SCH (09:10)
[2018-10-24] MEDS: ASPIRIN 325 MG TAB PO SCH (09:15)
[2018-10-24] MEDS: LEVOTHYROXINE 88 MCG TAB PO SCH (09:15)
[2018-10-24 12:54] VITALS: BP 127/68; PULSE 74
--- NOTE | 2018-10-24 15:14 | P.PN ---
Subjective Progress Note Date: 10/24/18 This is a pleasant 63-year-old female with history of hyperlipidemia, hypothyroidism, family history of premature coronary artery disease, who was seen in consultation yesterday, she presented to the hospital with symptoms of chest heaviness which woke her from sleep. She did have some mild associated shortness of breath with this. She states that the discomfort started through the night, and lasted into the next day. Patient was given nitroglycerin here at the hospital and it seemed to relieve the symptoms of chest discomfort. Last night she did have another episode of chest discomfort, she was started on IV nitroglycerin drip and transferred to the sixth floor. Her EKG performed on admission showed a normal sinus rhythm with nonspecific ST-T wave changes. Troponins were negative 3. Patient was advised to undergo cardiac catheterization, the risks and benefits were explained to the patient in detail , and this will be performed today by Dr. Cole. 10/24/2018 Patient did undergo cardiac catheterization yesterday which did not reveal any significantly obstructive coronary artery disease. She was seen and examined this morning, hemodynamically stable. Radial site clean and dry. Objective - Vital Signs Vital signs: Vital Signs Temp 97.6 F 10/24/18 08:00 Pulse 74 10/24/18 12:00 Resp 16 10/24/18 12:00 BP 127/68 10/24/18 12:00 Pulse Ox 98 10/24/18 12:00 Intake & Output 10/23/18 10/24/18 10/24/18 18:59 06:59 18:59 Intake Total 50 480 240 Output Total 0 Balance 50 480 240 Weight 95.5 kg Intake: IV 50 Intake, IV Titration 0 Amount Nitroglycerin-D5w Pmx 50 0 mg In Dextrose/Water 1 250ml.bag @ 5 MCG/MIN 1.5 mls/hr IV .Q24H DARYL Rx#: [id number] Oral 480 240 Output: Urine 0 Other: Voiding Method Toilet Toilet # Voids 2 2 1 - Exam PHYSICAL EXAMINATION: GENERAL: 63-year-old female in no acute distress at the time of my examination HEENT: Head is atraumatic, normocephalic. Pupils equal, round. Sclera anicteric. Conjunctiva are clear. Mucous membranes of the mouth are moist. Neck is supple. There is no elevated jugular venous pressure.] bruit is heard. HEART EXAMINATION: Heart S1, S2 normal. No murmur or gallop heard. CHEST EXAMINATION: Lungs are clear to auscultation and precussion. No chest wall tenderness is noted on palpation or with deep breathing. ABDOMEN: Soft, nontender. Bowel sounds are heard. No organomegaly noted. EXTREMITIES: 2+ peripheral pulses with no evidence of peripheral edema and no calf tenderness noted. Right radial site clean and dry, good distal pulse. NEUROLOGIC patient is awake, alert and oriented ?-3. . - Labs CBC & Chem 7: 10/24/18 05:38 10/22/18 08:45 Assessment and Plan Plan: Assessment and plan #1 symptoms of chest pressure and heaviness with mild associated shortness of breath, bone is normal 3, no acute EKG changes. #2 hyperlipidemia #3 hypothyroidism #4 family history of premature coronary artery disease Plan Echocardiogram with Doppler study was performed which revealed a normal left ventricular systolic function. Cardiac catheterization was performed which did not reveal any significant obstructive coronary artery disease. From cardiology 's perspective, patient may be able to be discharged home today. We'll make her a follow-up appointment in the office with Dr. Cole post discharge. DNP note has been reviewed, I agree with a documented findings and plan of care. Patient was seen and examined.
--- NOTE | 2018-10-25 01:06 | P.DS ---
Providers Date of admission: 10/22/18 10:50 Expected date of discharge: 10/24/18 Attending physician: James Arcos Consults: 10/22/18 10:50 Consult Physician Urgent Consulting Provider: Nimesh Kelly Consult Reason/Comments: cp Do you want consulting provider notified?: Yes Primary care physician: [facility] Course: Discharge diagnosis Atypical chest pain/pressure. Ruled out ACS. Status post cardiac catheterization and was found have normal coronaries. Hypothyroidism Hyperlipidemia Family history of coronary artery disease with [place] in her brother at age 49 Obesity with BMI 32.3 Osteoarthritis Hearing disorder/deafness Family history of blood clotting disorders Previous history of smoking DVT prophylaxis Hospital course Patient is 63-year-old female with a known history of hypothyroidism, osteoarthritis and hearing disorder came to ER with complaints of chest pressure since Monday a.m. Patient says that she woke up with heavy pressure- like sensation in the midsternal region and radiating to the back. 8 / 10 in severity when she came to the hospital. Patient has been having constant pain and pressure since then. Patient also has been burping a lot. Patient did take Prilosec at home without much relief. Patient has been feeling fluttering in her chest intermittently. Patient says that she does have history of hypothyroidism and has been taking higher dose of levothyroxine and recently reduce the dose to 88 g from 100 g due to fluttering in the chest. Otherwise patient denied any associated shortness of breath, nausea vomiting or diaphoresis. No headache or dizziness or lightheadedness. No cough or sputum production. No fever no chills. Patient did take Augmentin for one day prior to admission. Was started for possible pneumonia as an outpatient. EKG showed normal sinus rhythm with no acute ST-T wave changes Chest x-ray showed no acute cardiopulmonary process D-dimer 0.3 to not elevated Troponin 1 negative nt-proBNP is 174 Patient says that she has a family history of blood clots and she was tested previously but workup came out negative for her. Patient does have a family history of coronary disease in her brother with history of [place] at age 49. He also had bariatric surgery. TSH 0.2 and free T4 1.6 10/23/2018 Patient is status post cardiac catheterization. Patient was found have normal coronaries. Medical management was recommended as per cardiology. Otherwise currently denied any complaints of chest pain or shortness of breath. No nausea vomiting or abdominal pain. No diarrhea or dysuria. 10/24/2018 Patient denied any complaints of shortness of breath today. Patient did have some chest tightness. No wheezing. Bilateral air entry is present no fever no chills. Otherwise clinically improving. Stable to be discharged home. Patient was continued on telemetry monitoring. Serial EKG and troponin negative 3. Patient was seen by cardiology and recommended cardiac catheterization. Patient is status post cardiac catheterization and normal coronaries. Medical management was recommended as per cardiology. Her chest pressure symptoms could be secondary to possible gastritis since the pain started after taking Augmentin for one day. Patient does have previous history of smoking but quit long time ago. No evidence of wheezing noted. Otherwise patient did improve symptomatically through the hospital stay. Currently patient is stable to be discharged home and recommended to follow with primary care physician as an outpatient. Discharge physical examination PHYSICAL EXAMINATION: Patient is lying in the bed comfortably, no acute distress, awake alert and oriented.. HEENT: Normocephalic. Neck is supple. Pupils reactive. Nostrils clear. Oral cavity is moist. Ears reveal no drainage. Neck reveals no JVD, carotid bruits, or thyromegaly. CHEST EXAMINATION: Trachea is central. Symmetrical expansion. Lung dela cruz clear to auscultation and percussion. CARDIAC: Normal S1, S2 with no gallops. No murmurs ABDOMEN: Soft. Bowel sounds normal. No organomegaly. No abdominal bruits. Extremities: reveal no edema. No clubbing or cyanosis Neurologically awake, alert, oriented x3 with well-coordinated movements. No focal deficits noted Skin: No rash or skin lesions. Psychiatric: Coperative. Nonsuicidal Musculoskeletal: No joint swelling or deformity. Normal range of motion. Vital Signs - 24 hr 10/24/18 10/24/18 10/24/18 04:00 08:00 12:00 Temperature 98.4 F 97.6 F Pulse Rate [ 72 75 74 Right Supine Radial] Respiratory 16 16 16 Rate Blood Pressure 119/80 114/66 127/68 [Left Arm] O2 Sat by Pulse 97 96 98 Oximetry Patient Condition at Discharge: Good Plan - Discharge Summary Discharge Rx Participant: No New Discharge Prescriptions: New Albuterol Inhaler [Ventolin Hfa Inhaler] 2 puff INHALATION RT-Q6H PRN #1 inhaler PRN Reason: Shortness Of Breath Continue Cetirizine HCl [Zyrtec] 10 mg PO HS Levothyroxine Sodium [Synthroid] 88 mcg PO DAILY Discontinued Amoxic-Pot Clav 875-125Mg [Augmentin 875-125] 1 tab PO Q12HR Discharge Medication List Cetirizine HCl [Zyrtec] 10 mg PO HS 10/22/18 [History] Levothyroxine Sodium [Synthroid] 88 mcg PO DAILY 10/22/18 [History] Albuterol Inhaler [Ventolin Hfa Inhaler] 2 puff INHALATION RT-Q6H PRN #1 inhaler 10/24/18 [Rx] Follow up Appointment(s)/Referral(s): John Salinas DO [Primary Care Provider] - 10/30/18 11:00 am (Monday with [employer]) Nimesh Kelly MD [STAFF PHYSICIAN] - 10/30/18 4:30 pm (Monday ) Patient Instructions/Handouts: *Surgery [facility] - After Heart Catheterization - Medication Assistant Instructions, Left Heart Catheterization (DC) Discharge Disposition: HOME SELF-CARE
== END 2018-10-24 14:46 | disposition home or self-care (01) ==
LOC: EC 08:11 → 1SOBS 10:50 → 3SCARD 20:14
PROVIDERS: ADMIT Hospitalist; ATTEND Hospitalist
DX: R07.89 Other chest pain (principal); R07.2 Precordial pain; E03.9 Hypothyroidism, unspecified; E78.5 Hyperlipidemia, unspecified; H91.90 Unspecified hearing loss, unspecified ear; I10 Essential (primary) hypertension; E66.9 Obesity, unspecified; Z68.32 Body mass index [BMI] 32.0-32.9, adult; M19.90 Unspecified osteoarthritis, unspecified site; Z79.890 Hormone replacement therapy; Z79.2 Long term (current) use of antibiotics; Z82.49 Family history of ischemic heart disease and other diseases of the circulatory system; Z83.2 Family history of diseases of the blood and blood-forming organs and certain disorders involving the immune mechanism; Z87.891 Personal history of nicotine dependence
CPT/HCPCS: 96374; 99285; 93454; 36415; 93005; 93306; 85379; 84439; 83880; 80061; 80053; 84443; 82550; 82553; 83735; 84484; 85025; 85049 ×2; 85610; 85730 ×2; 71046; G0378 ×4; C1769; C1894; J2001; J2250; J1644 ×3; Q9967

== ENCOUNTER 2021-04-05 08:39 | Emergency (ER) | payer BC, OTHER ==
[2021-04-05 08:42] VITALS: RESP 18; TEMP 97.5
[2021-04-05] MEDS ORDERED: NITROGLYCERIN OINT 1 INCH/GM PACKET TOPICAL STA (08:55)
[2021-04-05] MEDS ORDERED: ASPIRIN 81 MG PO STA (08:55)
[2021-04-05 09:14] LABS: Basophils # (A) 0.1 k/uL (0-0.2); Basophils % (A) 1 %; Eosinophils # (A) 0.5 k/uL (0-0.7); Eosinophils % (A) 7 %; HCT 44.3 % (34.0-46.0); HGB 15.1 gm/dL (11.4-16.0); Lymphocytes # (A) 1.8 k/uL (1.0-4.8); Lymphocytes % (A) 30 %; MCH 31.7 pg (25.0-35.0); MCHC 34.1 g/dL (31.0-37.0); MCV 92.9 fL (80.0-100.0); Mean Platelet Volume 7.8; Monocytes # (A) 0.4 k/uL (0-1.0); Monocytes % (A) 6 %; Neutrophils # (A) 3.3 k/uL (1.3-7.7); Neutrophils % (A) 54 %; Platelet Count 214 k/uL (150-450); RBC 4.77 m/uL (3.80-5.40); RDW 12.8 % (11.5-15.5); WBC 6.1 k/uL (3.8-10.6)
--- NOTE | 2021-04-05 09:26 | XR ---
EXAMINATION TYPE: XR chest 2V DATE OF EXAM: 04/05/2021 COMPARISON: 10/22/2018 HISTORY: 65-year-old female with chest pain TECHNIQUE: PA and lateral views FINDINGS: Heart normal size. Aorta and pulmonary vasculature within normal limits. No consolidation or pleural effusion. IMPRESSION: No acute cardiopulmonary process.
--- NOTE | 2021-04-05 09:28 | XR ---
EXAMINATION TYPE: XR KUB DATE OF EXAM: 04/05/2021 Comparison: None Clinical History: 65-year-old female Abdominal fullness Findings: No evidence for free intraperitoneal air. No dilated small bowel. Small air-fluid level in the central left mid abdomen. Colonic air is present throughout with mild overall stool burden. Cholecystectomy clips. No definite suspicious calcification identified. Impression: Nonspecific small air-fluid level in the central left mid abdomen may be transient or could represent a regional ileus or enteritis. No evidence for free air or bowel obstruction.
[2021-04-05 09:29] LABS: ALT 25 U/L (4-34); AST 32 U/L (14-36); African American GFR (CKD) >90 (>60 ml/min/1.73 sqM); Albumin 4.6 g/dL (3.5-5.0); Alkaline Phosphatase 108 U/L (38-126); Amylase 63 U/L (30-110); Anion Gap 8 mmol/L; Blood Urea Nitrogen 12 mg/dL (7-17); Calcium 9.7 mg/dL (8.4-10.2); Carbon Dioxide 27 mmol/L (22-30); Chloride 105 mmol/L (98-107); Glucose 109 mg/dL (74-99); Lipase 187 U/L (23-300); Magnesium 2.1 mg/dL (1.6-2.3); Non-African American GFR(CKD) 85 (>60 ml/min/1.73 sqM); Sodium 140 mmol/L (137-145); Total Bilirubin 0.5 mg/dL (0.2-1.3); Total Protein 7.5 g/dL (6.3-8.2)
[2021-04-05 09:34] LABS: INR 0.9 (<1.2); Partial Thromboplastin Time 23.5 sec (22.0-30.0)
--- NOTE | 2021-04-05 10:13 | ED ---
General Adult HPI - General Chief complaint: Chest Pain Stated complaint: chest pain Time Seen by Provider: 04/05/21 08:40 Source: patient, RN notes reviewed, old records reviewed Mode of arrival: wheelchair Limitations: no limitations - History of Present Illness Initial comments: This is a 65-year-old female with a chief complaint of chest pain upper abdominal pain. Patient states it happened about 2 weeks ago for the first time it happened again Monday and then again Monday evening. Patient states she didn't go to the emergency department that time because she was on vacation. Patient came in this morning she does still feel some chest pressure as well as some epigastric abdominal fullness. Patient states that she felt as though it might just be some gas. Patient states she has mild shortness of breath and denies any diaphoretic episodes and denies any nausea. Patient denies any recent fever chills or cough. Patient describes the pain in the chest pressure. Patient states she has relieved the pressure by taking Prilosec or burping and on occasion she had a bowel movement with quite a bit of gas and that is also relieved the pressure and stomach and chest. - Related Data Home Medications Medication Instructions Recorded Confirmed Levothyroxine Sodium [Synthroid] 88 mcg PO DAILY 10/22/18 04/05/21 Cholecalciferol [Vitamin D3 (25 50 mcg PO DAILY 04/05/21 04/05/21 Mcg = 1000 Iu)] Rosuvastatin [Crestor] 10 mg PO HS 04/05/21 04/05/21 Triamterene-Hctz 37.5-25Mg 1 cap PO DAILY PRN 04/05/21 04/05/21 [Dyazide 37.5-25 Capsule] Allergies Allergy/AdvReac Type Severity Reaction Status Date / Time No Known Allergies Allergy Verified 04/05/21 10:02 Review of Systems ROS Statement: Those systems with pertinent positive or pertinent negative responses have been documented in the HPI. ROS Other: All systems not noted in ROS Statement are negative. Past Medical History Past Medical History: Hyperlipidemia, Thyroid Disorder Additional Past Medical History / Comment(s): Blood clotting disorder in family but pt tested negative for it, arthritis in multiple joints, LDL 130s-not on RX yet, R ear tinnitis, hypothyroid. History of Any Multi-Drug Resistant Organisms: None Reported Past Surgical History: Cholecystectomy, Tonsillectomy Additional Past Surgical History / Comment(s): Cervical benign polypectomy, L breast lumpectomy x2 (benign), D&C Additional Past Anesthesia/Blood Transfusion Reaction / Comment(s): Pt is slow to wake. Past Psychological History: No Psychological Hx Reported Smoking Status: Never smoker Past Alcohol Use History: Occasional Past Drug Use History: None Reported - Past Family History Father Additional Family Medical History / Comment(s): Father at the age of 44 yrs after a trip to [facility]-possible intestinal infection. Mother Family Medical History: Cancer Additional Family Medical History / Comment(s): Mother had breasst cancer. She is 81 yrs old. General Exam - General Exam Comments Initial Comments: GENERAL: Patient is well-developed and well-nourished. Patient is nontoxic and well- hydrated and is in mild distress. ENT: Neck is soft and supple. No significant lymphadenopathy is noted. Oropharynx is clear. Moist mucous membranes. Neck has full range of motion without eliciting any pain. EYES: The sclera were anicteric and conjunctiva were pink and moist. Extraocular move ments were intact and pupils were equal round and reactive to light. Eyelids were unremarkable. PULMONARY: Unlabored respirations. Good breath sounds bilaterally. No audible rales rhonchi or wheezing was noted. CARDIOVASCULAR: There is a regular rate and rhythm without any murmurs gallops or rubs. ABDOMEN: Soft and nontender with normal bowel sounds. SKIN: Skin is clear with no lesions or rashes and otherwise unremarkable. NEUROLOGIC: Patient is alert and oriented x3. Cranial nerves II through XII are grossly intact. Motor and sensory are also intact. Normal speech, volume and content. Symmetrical smile. MUSCULOSKELETAL: Normal extremities with adequate strength and full range of motion. No lower extremity swelling or edema. No calf tenderness. LYMPHATICS: No significant lymphadenopathy is noted PSYCHIATRIC: Normal psychiatric evaluation. Limitations: no limitations Course Vital Signs 04/05/21 04/05/21 08:39 10:36 Temperature 97.5 F L Pulse Rate 90 75 Respiratory 18 18 Rate Blood Pressure 194/96 141/71 O2 Sat by Pulse 98 98 Oximetry Medical Decision Making - Medical Decision Making Patient's chest x-ray shows no acute abnormality. EKG shows normal sinus rhythm at 85 bpm OH interval is on a 56 QRS is 90 QT inte rval 376 QTC is 447. Patient's EKG shows no ST segment or depression Patient indicated to me she had a catheterization 2 years ago was FINE. I indicated to the patient I thought she should stay she wanted to follow-up as an outpatient I let her think about it for 15 minutes and she again stated she wanted to go home and follow-up with Dr. Salinas. KUB didn't show a possible ileus. - Lab Data Result diagrams: 04/05/21 09:00 04/05/21 09:00 Lab Results 04/05/21 04/05/21 04/05/21 Range/Units 09:00 09:00 09:00 WBC 6.1 (3.8-10.6) k/uL RBC 4.77 (3.80-5.40) m/uL Hgb 15.1 (11.4-16.0) gm/dL Hct 44.3 (34.0-46.0) % MCV 92.9 (80.0-100.0) fL MCH 31.7 (25.0-35.0) pg MCHC 34.1 (31.0-37.0) g/dL RDW 12.8 (11.5-15.5) % Plt Count 214 (150-450) k/uL MPV 7.8 Neutrophils % 54 % Lymphocytes % 30 % Monocytes % 6 % Eosinophils % 7 % Basophils % 1 % Neutrophils # 3.3 (1.3-7.7) k/uL Lymphocytes # 1.8 (1.0-4.8) k/uL Monocytes # 0.4 (0-1.0) k/uL Eosinophils # 0.5 (0-0.7) k/uL Basophils # 0.1 (0-0.2) k/uL PT 10.0 (9.0-12.0) sec INR 0.9 (<1.2) APTT 23.5 (22.0-30.0) sec Sodium 140 (137-145) mmol/L Potassium 4.0 (3.5-5.1) mmol/L Chloride 105 (98-107) mmol/L Carbon Dioxide 27 (22-30) mmol/L Anion Gap 8 mmol/L BUN 12 (7-17) mg/dL Creatinine 0.75 (0.52-1.04) mg/dL Est GFR (CKD-EPI)AfAm >90 (>60 ml/min/1.73 sqM) Est GFR (CKD-EPI)NonAf 85 (>60 ml/min/1.73 sqM) Glucose 109 H (74-99) mg/dL Calcium 9.7 (8.4-10.2) mg/dL Magnesium 2.1 (1.6-2.3) mg/dL Total Bilirubin 0.5 (0.2-1.3) mg/dL AST 32 (14-36) U/L ALT 25 (4-34) U/L Alkaline Phosphatase 108 (38-126) U/L Troponin I (0.000-0.034) ng/mL Total Protein 7.5 (6.3-8.2) g/dL Albumin 4.6 (3.5-5.0) g/dL Amylase 63 (30-110) U/L Lipase 187 (23-300) U/L 04/05/21 Range/Units 09:00 WBC (3.8-10.6) k/uL RBC (3.80-5.40) m/uL Hgb (11.4-16.0) gm/dL Hct (34.0-46.0) % MCV (80.0-100.0) fL MCH (25.0-35.0) pg MCHC (31.0-37.0) g/dL RDW (11.5-15.5) % Plt Count (150-450) k/uL MPV Neutrophils % % Lymphocytes % % Monocytes % % Eosinophils % % Basophils % % Neutrophils # (1.3-7.7) k/uL Lymphocytes # (1.0-4.8) k/uL Monocytes # (0-1.0) k/uL Eosinophils # (0-0.7) k/uL Basophils # (0-0.2) k/uL PT (9.0-12.0) sec INR (<1.2) APTT (22.0-30.0) sec Sodium (137-145) mmol/L Potassium (3.5-5.1) mmol/L Chloride (98-107) mmol/L Carbon Dioxide (22-30) mmol/L Anion Gap mmol/L BUN (7-17) mg/dL Creatinine (0.52-1.04) mg/dL Est GFR (CKD-EPI)AfAm (>60 ml/min/1.73 sqM) Est GFR (CKD-EPI)NonAf (>60 ml/min/1.73 sqM) Glucose (74-99) mg/dL Calcium (8.4-10.2) mg/dL Magnesium (1.6-2.3) mg/dL Total Bilirubin (0.2-1.3) mg/dL AST (14-36) U/L ALT (4-34) U/L Alkaline Phosphatase (38-126) U/L Troponin I <0.012 (0.000-0.034) ng/mL Total Protein (6.3-8.2) g/dL Albumin (3.5-5.0) g/dL Amylase (30-110) U/L Lipase (23-300) U/L Disposition Clinical Impression: Chest pressure, Ileus Disposition: HOME SELF-CARE Condition: Good Instructions (If sedation given, give patient instructions): Chest Pain (ED), Ileus (ED) Is patient prescribed a controlled substance at d/c from ED?: No Referrals: John Salinas DO [Primary Care Provider] - 1-2 days Time of Disposition: 11:33
[2021-04-05 10:37] VITALS: BP 141/71; PULSE 75
== END 2021-04-05 11:53 | disposition home or self-care (01) ==
LOC: EC 08:39
DX: K56.7 Ileus, unspecified (principal); R07.89 Other chest pain; E78.5 Hyperlipidemia, unspecified; E03.9 Hypothyroidism, unspecified; Z79.890 Hormone replacement therapy; Z79.899 Other long term (current) drug therapy
CPT/HCPCS: 36415; 71046; 74018; 80053; 82150; 83690; 83735; 84484; 85025; 85610; 85730; 93005; 99285

== ENCOUNTER → 2021-05-19 | Outpatient (CLI) | payer OTHER ==
--- NOTE | 2021-05-19 11:13 | FL ---
EXAMINATION TYPE: FL barium swallow DATE OF EXAM: 05/19/2021 CLINICAL HISTORY: Gastroesophageal reflux disease prior. Epigastric pain per patient with some relief recently on antireflux medication. TECHNIQUE: A double contrast esophagram is performed utilizing air and barium. A total of 21 second s of fluoroscopic time was utilized during procedure and 49 images obtained COMPARISON: None FINDINGS: Preprocedure sap bpc developer image shows overall nonobstructive bowel gas pattern. Cholecystectomy cl ips are present. The esophagus shows satisfactory motility and emptying into the stomach. Small slidi ng-type hiatal hernia seen towards fundus study. No diverticulum or stricture noted. No significant g astroesophageal reflux was seen during real time performance of this study. IMPRESSION: Small sliding-type hiatal hernia.
== END | disposition home or self-care (01) ==
LOC: RADUSWWP 10:13
PROVIDERS: ATTEND Family Medicine
DX: K44.9 Diaphragmatic hernia without obstruction or gangrene (principal)
CPT/HCPCS: 74220

== ENCOUNTER → 2022-07-12 | Outpatient (CLI) | payer MEDICARE, OTHER ==
--- NOTE | 2022-07-12 11:50 | BD ---
EXAMINATION TYPE: Axial Bone Density DATE OF EXAM: 07/12/2022 COMPARISON: BASELINE CLINICAL HISTORY: 67 years old Female. ICD-10 CODE: M85.88 oth bne disorder of structure/density Nuclear Medicine Study in the last 2 weeks: Barium Study in the last week: Height: 64.25 Weight: 223 FRAX RISK QUESTIONS: Family History (Parent hip fracture): NO History of Fracture in Adulthood: NO Secondary Osteoporosis: NO Rheumatoid Arthritis: NO Current Tobacco Use: NO RISK FACTORS HISTORY OF: Family History of Osteoporosis: NO Active: YES Diet low in dairy products/other sources of calcium: NO Postmenopausal woman: YES Lost more than 2 inches in height since high school: NO MEDICATIONS: Thyroid Medications: Which medication: Levothyroxine How Lon-10 YEARS Additional Medications: YES CALCIUM, VIT D Additional History: YES CHOLESTEROL EXAM MEASUREMENTS: Bone mineral densitometry was performed using the HZO System. Bone mineral density as measured about the Lumbar spine is: ----- L1-L4(G/cm2): 1.093 T Score Values are as follows: ----- L1: -0.8 ----- L2: -0.9 ----- L3: -1.0 ----- L4: -0.4 ----- L1-L4: -0.7 Bone mineral density BASELINE Bone mineral density about the R hip (g/cm2): 0.982 Bone mineral density about the L hip (g/cm2): 1.015 T Score values are as follows: -----R Neck: -0.8 -----L Neck: -0.8 -----R Total: -0.2 -----L Total: 0.1 Bone mineral density BASELINE FRAX%s: The graph provided illustrates a 7.0% chance for a major osteoporotic fx and a 0.4% chance fo r the hips probability for fx in 10 years time. IMPRESSION: Normal (Values between +1 and -1 indicate normal bone mass). Consider repeating this study in 5 year s or sooner if there is some new clinical indication. NOTE: T-SCORE=SD OF THE YOUNG ADULT MEAN.
== END | disposition home or self-care (01) ==
LOC: RADBDWWP 10:24
PROVIDERS: ATTEND Internal Medicine Endocrinology, Diabetes & Metabolism
DX: M85.88 Other specified disorders of bone density and structure, other site (principal); E03.8 Other specified hypothyroidism; E55.9 Vitamin D deficiency, unspecified; Z78.0 Asymptomatic menopausal state
CPT/HCPCS: 77080; 82306; 84443

== ENCOUNTER → 2023-05-01 | Outpatient (CLI) | payer MEDICARE, OTHER ==
--- NOTE | 2023-05-03 14:48 | MM ---
Reason for Exam: Screening (asymptomatic). Last mammogram was performed 6 year(s) and 2 month(s) ago. Patient History: Menarche at age 14. Excisional Biopsy on the Left side. Maternal unspecified had breast cancer. Mother had breast cancer. Risk Values: Yecenia 5 year model risk: 3.7%. NCI Lifetime model risk: 12.8%. Prior Study Comparison: 12/31/2010 Screening Mammogram, [facility]. 05/18/2012 Screening Mammogram, [facility]. 02/06/2017 Bilateral Diagnostic Mammogram, [facility]. Tissue Density: The breast tissue is heterogeneously dense. This may lower the sensitivity of mammography. Findings: Analyzed By CAD. No significant changes when compared with prior studies. No discrete abnormality. Overall Assessment: Negative, BI-RAD 1 Management: Screening Mammogram of both breasts in 1 year. Electronically signed and approved by: Raj Kumari M.D. Radiologis
== END | disposition home or self-care (01) ==
LOC: RADMAMWWP 16:36
PROVIDERS: ATTEND Family Medicine
DX: Z12.31 Encounter for screening mammogram for malignant neoplasm of breast (principal); Z80.3 Family history of malignant neoplasm of breast
CPT/HCPCS: 77063; 77067

== ENCOUNTER → 2024-12-07 | Outpatient (CLI) | payer MEDICARE | END | disposition home or self-care (01) | LOC: LABWHC1 11:07 | PROVIDERS: ATTEND Internal Medicine Endocrinology, Diabetes & Metabolism | DX: E03.8 Other specified hypothyroidism (principal); E55.9 Vitamin D deficiency, unspecified | CPT/HCPCS: 36415; 82306; 84443 ==